=== PATIENT | female | born 1980 | race Caucasian/White ===

== ENCOUNTER 2020-05-04 02:06 | Observation (INO) | payer OTHER ==
[~2020-05-04] VITALS: Ht 162.6 cm; Wt 104.8 kg
[2020-05-04 02:47] VITALS: BP 107/58
[2020-05-04] MEDS ORDERED: CLINDAMYCIN 900 MG/6 ML VIAL IV ONE (03:05)
[2020-05-04] MEDS ORDERED: PREN-543 PO (04:58)
== END 2020-05-04 05:08 | disposition home or self-care (01) ==
LOC: MLD 02:06
PROVIDERS: ADMIT Obstetrics & Gynecology; ATTEND Obstetrics & Gynecology
DX: O26.892 Other specified pregnancy related conditions, second trimester (principal); R10.2 Pelvic and perineal pain; O99.282 Endocrine, nutritional and metabolic diseases complicating pregnancy, second trimester; E03.9 Hypothyroidism, unspecified; O99.012 Anemia complicating pregnancy, second trimester; D64.9 Anemia, unspecified; Z79.899 Other long term (current) drug therapy; Z3A.19 19 weeks gestation of pregnancy
CPT/HCPCS: G0378; J3490